=== PATIENT | female | born 1945 | race Hispanic/Latino ===

== ENCOUNTER 2019-02-20 09:29 | Outpatient (CLI) | payer MEDICARE, OTHER ==
[2019-02-20 10:34] LABS: Blood Urea Nitrogen 18 mg/dL (7-17)
--- NOTE | 2019-02-20 15:23 | Cat Scan Report ---
PROCEDURE: CT CHEST W CON, CT ABDOMEN PELVIS W CON TECHNIQUE: CT of chest, abdomen, and pelvis with IV contrast. Coronal and sagittal reconstructed imag es provided. CT DOSE LENGTH PRODUCT: 1252.6 mGy-cm. HISTORY: Malignant neoplasm of splenic flexure COMPARISONS: None currently available. FINDINGS: Chest: 6.1 x 7.5 mm pleural-based pulmonary nodule along the right major fissure series 2:64. 5.2 mm solid nodule right lower lobe series 2:82. No pneumothorax. No effusion. No consolidation. No endobronchial lesion. Bibasilar minimal linear sca rring and/or discoid subsegmental atelectasis. Main pulmonary artery is unremarkable. No aneurysm. Major branch arteries are within normal limits. Sboc-er-reglvbod atherosclerotic disease . Cardiac silhouette is within normal limits. No pericardial effusion. Coronary artery disease. There is no axillary adenopathy. There is no hilar or mediastinal mass or adenopathy. Limited images of the thyroid gland are unremarkable. Limited images of the esophagus are unremarkable. Abdomen: Liver: 1.3 cm well-defined low-attenuation lesion in the left liver on series 2:97. Another lesion in the left liver on image 112 measures 0.5 cm. Kidneys: Symmetrical cortical enhancement. Well-defined low-attenuation lesion with internal linear s epta and linear calcifications measures 6.7 cm. No hydronephrosis. No suspicious enhancements. Pancreas: Series 2:53 demonstrates a well-defined oval lesion measuring 2.3 x 1.4 cm with attenuation similar to the spleen which may represent a splenule. Gallbladder, stomach, spleen, and adrenals are unremarkable. No aneurysm. No dissection. Thbw-nc-ffwucjdd atherosclerotic disease. IVC is unremarkable. There is no periaortic or retroperitoneal adenopathy or mass. Partial colectomy. Moderate stool in the left colon. No wall thickening or inflammatory changes. Terminal ileum is unremarkable. Appendix is normal. Small bowel loops are unremarkable. No obstructive pattern. No air-fluid levels. No free air. No free fluid. Mesentery is unremarkable. Pelvis: Uterus: Limited images are unremarkable. Cervical device noted. Bladder: Unremarkable. There is no pelvic mass or adenopathy. Inguinal regions are unremarkable. Bones: No suspicious osseous lesions on this limited examination of the skeleton. Metastatic disease better evaluated with bone scan. Degenerative changes are in the spine. IMPRESSION: * Pulmonary nodules. * Hepatic lesions are nonspecific. Differential diagnosis includes cysts, hemangiomas, pseudotumors associated with fatty infiltration and also benign and malignant tumors. Cysts and hemangiomas favore d. Correlation with ultrasound may be helpful if clinically indicated. * Well-defined homogeneous lesion in the tail the pancreas may represent a splenule. Short-term inte rval follow-up may be helpful if clinically indicated. * Moderate stool in the left colon particularly around the splenic flexure. Please correlate for con stipation. No mass identified. 2017 [employer] FOR PULMONARY NODULE MANAGEMENT Multiple nodules size: <6 mm * low risk patients: no routine follow-up * high risk patients: optional CT at 12 months Multiple nodules size: 6-8 mm * low risk patients: follow-up at 3-6 months, then consider further follow-up at 18-24 months * high risk patients: follow-up at 3-6 months, then at 18-24 months if no change Multiple nodules size: >8 mm * low risk patients: follow-up at 3-6 months, then consider further follow-up at 18-24 months * high risk patients: follow-up at 3-6 months, then at 18-24 months if no change Note: newly detected indeterminate nodule in persons 35 years of age or older low risk patients: minimal or absent history of smoking and or other known risk factors high risk patients: history of smoking or of other known risk factors (e.g. first degree relative wit h lung cancer, or exposure to asbestos, radon, uranium) This document is electronically signed by Archie Hatfield MD., February 20 2019 03:20:46 PM ET
--- NOTE | 2019-02-20 16:01 | Nuclear Medicine Report ---
NUCLEAR MEDICINE WHOLE-BODY BONE SCAN: 02/20/19 CLINICAL: Colon cancer restaging. COMPARISON: Same day CT CAP TECHNIQUE: 25 millicuries technetium 99m MDP was injected intravenously and whole body scans were obtained at 3 hours. FINDINGS: Mild uptake in the lower lumbar spine correlates with degenerative changes on the CT. Focal uptake in the right great toe is probably benign and related to arthritis. No suspicious uptake. IMPRESSION: Negative study.
== END 2019-02-20 09:30 | disposition home or self-care (01) ==
LOC: NM 09:29
PROVIDERS: ATTEND Internal Medicine Hematology & Oncology
DX: R91.1 Solitary pulmonary nodule (principal); K76.0 Fatty (change of) liver, not elsewhere classified; K59.09 Other constipation; C18.9 Malignant neoplasm of colon, unspecified; I25.10 Atherosclerotic heart disease of native coronary artery without angina pectoris; C18.5 Malignant neoplasm of splenic flexure
CPT/HCPCS: 36415; 71260; 74177; 78306; 82565; 84520; A9503; Q9967

== ENCOUNTER 2019-06-08 07:51 | Outpatient (CLI) | payer MEDICARE, OTHER ==
--- NOTE | 2019-06-09 08:20 | PET Report ---
PET/CT HISTORY: C18.5. Restaging of colon cancer. TECHNIQUE: The patient's fasting blood glucose was 110. The patient weighed 117 lbs. The patient w as injected with 15.0 mCi of FDG in the right hand at 0824 hours and imaging was started at 0922 hour s. The patient was imaged from the skull base to the thighs. All CT scans at this location are perfo rmed using CT dose reduction for ALARA by means of automated exposure control. Images were reviewed o n a workstation. COMPARISON: 05/21/2016 FINDINGS: IMAGED BRAIN: [Physiologic FDG uptake]. Right frontal craniectomy changes are noted, correlate with history. NECK: [Physiologic FDG uptake] CHEST WALL: [Physiologic FDG uptake] MEDIASTINUM: [Physiologic FDG uptake] LUNGS: [Physiologic FDG uptake] HEPATOBILIARY: [Physiologic FDG uptake] PANCREAS: [Physiologic FDG uptake SPLEEN: [Physiologic FDG uptake] KIDNEYS/BLADDER: [Physiologic FDG uptake]. 6.5 cm left renal cyst is stable. ADRENAL GLANDS: [Physiologic FDG uptake] GI/MESENTERY: [Physiologic FDG uptake]. Partial colectomy changes are noted. No obvious recurrent co madyson mass. PELVIC VISCERA: [Physiologic FDG uptake]. Pessary device in place. LYMPH NODES: [Physiologic FDG uptake] OSSEOUS STRUCTURES: [Physiologic FDG uptake] ADDITIONAL FINDINGS: [None] IMPRESSION: Negative PET CT. Stable findings since 05/21/2016. Signer Name: Rodney Joyner Jr, MD Signed: 06/09/2019 8:16 AM Workstation Name: [id number]
== END 2019-06-08 07:52 | disposition home or self-care (01) ==
LOC: PET 07:51
PROVIDERS: ATTEND Internal Medicine Hematology & Oncology
DX: C18.5 Malignant neoplasm of splenic flexure (principal); R73.09 Other abnormal glucose
CPT/HCPCS: 78815; 82962; A9552